=== PATIENT | female | born 1960 | race Caucasian/White ===

== ENCOUNTER → 2019-08-05 15:44 | Outpatient (CLI) | payer BC, SELFPAY ==
--- NOTE | ~2019-08-05 | MM_ITS ---
EXAMINATION: MM screening hans BI w shahzad HISTORY: Screening mammogram TECHNIQUE: Craniocaudal and mediolateral oblique 3-D tomosynthesis images were obtained and synthetic 2-D images were generated. CAD analysis was submitted and interpreted. COMPARISON: Comparison to multiple prior studies sequentially, with oldest reviewed study dated 04/11. BREAST PARENCHYMAL COMPOSITION: The breasts are heterogeneously dense, which may obscure small masses . FINDINGS: There is no evidence of suspicious mass, calcification, or architectural distortion to sugg est malignancy in either breast. There has been no suspicious interval change. IMPRESSION: 1. No mammographic evidence of malignancy. 2. Recommend routine screening mammography in one year. BI-RADS Category 1: Negative Reviewed, dictated and finalized at location A. P [employer]
== END ==
PROVIDERS: PCP Internal Medicine; Visit Provider Obstetrics & Gynecology
DX: Z12.31 Encounter for screening mammogram for malignant neoplasm of breast (principal)
CPT/HCPCS: 77063; 77067

== ENCOUNTER → 2019-08-07 14:17 | Outpatient (CLI) | payer BC, SELFPAY ==
--- NOTE | ~2019-08-07 | DEXA_ITS ---
Bone Density Report Name: Miladis Vaughan Age: 59 Sex: Female Ethnicity: White Date of : 1960 Indication: osteopenia; parental hip fracture; height loss; postmenopausal Referring Provider: ZUHAIR PYLE Study: Bone densitometry was performed. Exam Date: August 07, 2019 Accession number: [id number] Bone Density: Region BMD T-score Z-score Classification AP Spine (L1-L4) 0.891 -1.4 -0.1 Osteopenia Femoral Neck (Left) 0.656 -1.7 -0.5 Osteopenia Total Hip (Left) 0.777 -1.3 -0.5 Osteopenia Femoral Neck (Right) 0.676 -1.6 -0.3 Osteopenia Total Hip (Right) 0.805 -1.1 -0.3 Osteopenia Total Hip Mean 0.791 -1.2 -0.4 Osteopenia World Health Organization criteria for BMD impression classify patients as: Normal (T-score at or above -1.0), Osteopenia (T-score between -1.0 and -2.5), or Osteoporosis (T-score at or below -2.5). 10-year Fracture Risk(1): Major Osteoporotic Fracture 16% Hip Fracture 0.8% Reported Risk Factors: [place] (), Neck BMD=0.656, BMI=24.4, parental fracture (1) FRAX(R) Version 3.08. Fracture probability calculated for an untreated patient. Fracture probability may be lower if the patient has received treatment. Previous Exams: Region Exam Age BMD T-score BMD Change BMD Change Date g/cm2 vs Baseline vs Previous AP Spine(L1-L4) 08/07/2019 59 0.891 -1.4 0.017 -0.001 05/22/2017 57 0.892 -1.4 0.017 0.017 05/06/2015 55 0.874 -1.6 Total Hip(Left) 08/07/2019 59 0.777 -1.3 -0.023 -0.028* 05/22/2017 57 0.805 -1.1 0.005 0.005 05/06/2015 55 0.801 -1.2 Total Hip(Right) 08/07/2019 59 0.805 -1.1 0.001 -0.010 05/22/2017 57 0.815 -1.0 0.011 0.011 05/06/2015 55 0.804 -1.1 *Denotes significance at 95% confidence level, LSC for AP Spine = 0.022 g/cm2, LSC for Total Hip = 0.027 g/cm2 Clinical Information Provided by Patient: Parent has had a hip fracture Has used the following medications: Vitamin D, Calcium Patient maximum height was 67.75 Menopause Age: 51 Onset of menses at age 15 Number of children 2 Impression: The patient has low bone mass, based on the Left Femoral Neck T-score. The patient has an estimated ten-year risk of hip fracture of 0.8% and an estimated ten-year risk of major fracture of 16%, based on the WHO FRAX algorithm. The patient has risk factors, including
== END ==
PROVIDERS: PCP Internal Medicine; Visit Provider Obstetrics & Gynecology
DX: Z13.820 Encounter for screening for osteoporosis (principal); M85.88 Other specified disorders of bone density and structure, other site; M85.852 Other specified disorders of bone density and structure, left thigh; M85.851 Other specified disorders of bone density and structure, right thigh
CPT/HCPCS: 77080

== ENCOUNTER → 2020-09-09 16:17 | Outpatient (CLI) | payer BC, SELFPAY ==
--- NOTE | ~2020-09-09 | MM_ITS ---
EXAMINATION: MM screening hans BI w shahzad HISTORY: Screening mammogram TECHNIQUE: Craniocaudal and mediolateral oblique 3-D tomosynthesis images were obtained and synthetic 2-D images were generated. CAD analysis was submitted and interpreted. COMPARISON: 08/05/2019 bilateral digital screening mammogram 07/08/2018 diagnostic right digital mammogram and limited right breast ultrasound 06/25/2018, 05/21/2017 bilateral digital screening mammogram BREAST PARENCHYMAL COMPOSITION: The breasts are heterogeneously dense, which may obscure small masses . FINDINGS: There is a biopsy marker on the right; history of benign right breast biopsy. Suggestion of a 7 mm mass in the outer mid to lower left breast on MLO Tomosynthesis image . Mirta gnostic left mammogram and left breast ultrasound examination are recommended. Occasional subtle punctate benign-appearing microcalcifications are noted. Otherwise there is no evidence of suspicious mass, calcification, or architectural distortion to sugg est malignancy in either breast. There has been no other suspicious interval change. IMPRESSION: 1. Possible 7 mm mass in the posterior mid to lower outer left breast 2. Diagnostic left mammogram and left breast ultrasound examination are recommended. BI-RADS Category 0: Incomplete: Needs additional imaging evaluation. Reviewed, dictated and finalized at location A. IMPRESSION: 1. Possible 7 mm mass in the posterior mid to lower outer left breast 2. Diagnostic left mammogram and left breast ultrasound examination are recomme nded. BI-RADS Category 0: Incomplete: Needs additional imaging evaluation.
== END ==
PROVIDERS: Visit Provider Obstetrics & Gynecology
DX: Z12.31 Encounter for screening mammogram for malignant neoplasm of breast (principal); R92.8 Other abnormal and inconclusive findings on diagnostic imaging of breast
CPT/HCPCS: 77063; 77067

== ENCOUNTER → 2020-09-29 07:31 | Outpatient (CLI) | payer BC, SELFPAY ==
--- NOTE | ~2020-09-29 | MMUS_ITS ---
EXAMINATION: MM diagnostic mammo unilat LT, US breast LT limited HISTORY: Possible left breast mass on screening mammogram TECHNIQUE: Additional 3-D tomosynthesis images of the left breast were performed and synthetic 2-D im ages were generated. CAD analysis was submitted and interpreted. High resolution limited left breast ultrasound was performed. COMPARISON: 09/09/2020, 08/05/2019, 06/25/2018, 05/21/2017 FINDINGS: MAMMOGRAPHIC FINDINGS: There is an approximately 8 mm oval, obscured, low density mass in the posterior third of the lower b reast at the 6:00 location 4 cm from the nipple. No suspicious calcification or architectural distort ion are identified. ULTRASOUND: There is a 6 mm x 3 mm oval, parallel, hypoechoic mass with angular margins, no posterior features, a nd no internal vascularity at the 5:00 location 3 cm from the nipple. IMPRESSION: 1. Indeterminate left breast mass. 2. Ultrasound guided biopsy is recommended. BI-RADS category 4, suspicious findings. Reviewed, dictated and finalized at location A. IMPRESSION: 1. Indeterminate left breast mass. 2. Ultrasound guided biopsy is recommended. BI-RADS category 4, suspicious findings.
== END ==
PROVIDERS: Visit Provider Obstetrics & Gynecology
DX: R92.8 Other abnormal and inconclusive findings on diagnostic imaging of breast (principal)
CPT/HCPCS: 76642; 77065

== ENCOUNTER → 2022-04-16 13:18 | Outpatient (CLI) | payer OTHER, SELFPAY ==
--- NOTE | ~2022-04-16 | DEXA_ITS ---
Bone Density Report Name: DESHAUN AVILES Age: 62 Sex: Female Ethnicity: White Date of : 1960 Indication: osteopenia; parental hip fracture; height loss; postmenopausal Referring Provider: DINORAH NORTH Study: Bone densitometry was performed. Exam Date: April 16, 2022 Accession number: [id number] Bone Density: Region BMD T-score Z-score Classification AP Spine (L1-L4) 0.834 -1.9 -0.5 Osteopenia Femoral Neck (Left) 0.618 -2.1 -0.8 Osteopenia Total Hip (Left) 0.744 -1.6 -0.6 Osteopenia Femoral Neck (Right) 0.665 -1.7 -0.3 Osteopenia Total Hip (Right) 0.788 -1.3 -0.3 Osteopenia Total Hip Mean 0.766 -1.5 -0.5 Osteopenia World Health Organization criteria for BMD impression classify patients as: Normal (T-score at or above -1.0), Osteopenia (T-score between -1.0 and -2.5), or Osteoporosis (T-score at or below -2.5). 10-year Fracture Risk(1): Major Osteoporotic Fracture 18% Hip Fracture 1.4% Reported Risk Factors: [place] (), Neck BMD=0.618, BMI=22.2, parental fracture (1) FRAX(R) Version 3.08. Fracture probability calculated for an untreated patient. Fracture probability may be lower if the patient has received treatment. Previous Exams: Region Exam Age BMD T-score BMD Change BMD Change Date g/cm2 vs Baseline vs Previous AP Spine(L1-L4) 04/16/2022 62 0.834 -1.9 -0.040* -0.057* 08/07/2019 59 0.891 -1.4 0.017 -0.001 05/22/2017 57 0.892 -1.4 0.017 0.017 05/06/2015 55 0.874 -1.6 Total Hip(Left) 04/16/2022 62 0.744 -1.6 -0.056* -0.033* 08/07/2019 59 0.777 -1.3 -0.023 -0.028* 05/22/2017 57 0.805 -1.1 0.005 0.005 05/06/2015 55 0.801 -1.2 Total Hip(Right) 04/16/2022 62 0.788 -1.3 -0.017 -0.017 08/07/2019 59 0.805 -1.1 0.001 -0.010 05/22/2017 57 0.815 -1.0 0.011 0.011 05/06/2015 55 0.804 -1.1 *Denotes significance at 95% confidence level, LSC for AP Spine = 0.022 g/cm2, LSC for Total Hip = 0.027 g/cm2 Clinical Information Provided by Patient: Parent has had a hip fracture Has used the following medications: Vitamin D, Calcium, MTV Patient maximum height was 67.75 Menopause Age: 51 Onset of menses at age 15 Number of children 2 Impression: The patient has low bone mass, based on the Left Femoral Neck
== END ==
PROVIDERS: PCP Internal Medicine; Visit Provider Obstetrics & Gynecology Gynecology
DX: M85.88 Other specified disorders of bone density and structure, other site (principal); M85.852 Other specified disorders of bone density and structure, left thigh; M85.851 Other specified disorders of bone density and structure, right thigh
CPT/HCPCS: 77080

== ENCOUNTER 2022-05-17 01:02 | Day surgery (SDC) | payer OTHER, SELFPAY ==
[2022-05-09 14:55] VITALS: BMI 24.3
[2022-05-17 12:08] VITALS: BP 137/71; PULSE 98; RESP 18; TEMP 36.4; O2SAT 100
--- NOTE | 2022-05-17 12:17 | PM.HPGS ---
History of Present Illness History of Present Illness Consent: Risks, benefits, and alternatives have been discussed and questions answered. Patient agrees to proceed with procedure. Chief complaint: family history of colon cancer Narrative: Miladis Vaughan is a 62 year old female Presents for screening colonoscopy. Family history is significant the patient's mother had colon cancer. Patient reports that her current weight appetite bowel movements are normal. Patient denies abdominal pain. She has had no bleeding. She presents today for screening colonoscopy. Review of Systems Review of Systems: Review of systems noncontributory. [facility] Past Medical History Medical History (Updated 05/17/22 @ 12:18 by Manuelito Douglas MD) Basal cell carcinoma Hyperlipidemia Osteopenia Surgical History Surgical History S/P Mohs surgery for basal cell carcinoma Family History Family History Father Family history of malignant neoplasm, Onset Age: 78 Patient's father is Mother Carcinoma of colon Family history of malignant neoplasm of breast in first degree relative, Onset Age: 76 Patient's mother is Family history of cardiovascular disease Grandparent Family history of malignant neoplasm of breast, Onset Age: 70 Sibling Family history of malignant neoplasm, Onset Age: 55 Social History Social History Smoking status: Never smoker Second hand tobacco smoke exposure: No Alcohol intake: never Alcohol use details: 1-2 glasses of wine on holidays Substance use: never Substance use type: does not use Living arrangements: alone Spiritual care concerns: No Meds Home Medications and Allergies Home Medications Medication Instructions Recorded Confirmed Type ergocalciferol (vitamin D2) 1,250 1,250 mcg PO 2XW 02/19/20 05/09/22 History mcg (50,000 unit) capsule (Vitamin D2) calcium carbonate 600 mg calcium 600 mg PO BID 09/01/21 05/09/22 History (1,500 mg) tablet (Calcium) raloxifene 60 mg tablet 60 mg PO DAILY 05/09/22 05/09/22 History Allergies Allergy/AdvReac Type Severity Reaction Status Date / Time No Known Allergies Allergy Verified 05/17/22 12:06 Vital Signs Vital Signs - 24 hr 05/17/22 12:08 Temperature 97.6 F Pulse Rate 98 Respiratory Rate 18 Blood Pressure 137/71 Pulse Oximetry 100 Oxygen Delivery Room Air Exam Narrative: Physical exam reveals patient to be alert. Vital signs stable. HEENT exam is unremarkable. Patient is anicteric. Lungs are clear to auscultation and percussion. Heart is without murmur or extra sounds. Abdominal exam bowel sounds are present soft nontender with no hepatosplenomegaly. Digital external rectal exam is normal. Assessment and Plan Assessment and plan (1) Family history of colon cancer in mother: Code(s): Z80.0 - Family history of malignant neoplasm of digestive organs Status: Acute Assessment and Plan: Patient's mother had colon cancer. Plan for surveillance colonoscopy now and consider this at 5 year intervals in the future.
[2022-05-17] MEDS: LACTATED RINGERS 1,000 ML 150 ML IV CONT (12:24)
--- NOTE | 2022-05-17 12:50 | P.PNAN_ITS ---
Anes - Initial Pre Proc Eval Procedure: Operation Date: 05/17/22 13:30 Proposed Procedures p Screening Colonoscopy - Manuelito Douglas MD Date/Time: 05/17/22 12:50 Surgeon: Manuelito Douglas MD Pre Op Diagnosis: family history of colon cancer Patient Data Age: 62 Gender: F Height: 1.68 m Weight: 66.4 kg Last Vital Signs Temp 97.6 F 05/17/22 12:08 Pulse 98 05/17/22 12:08 Resp 18 05/17/22 12:08 BP 137/71 05/17/22 12:08 Pulse Ox 100 05/17/22 12:08 O2 Del Method Room Air 05/17/22 12:08 Allergies Allergy/AdvReac Type Severity Reaction Status Date / Time No Known Allergies Allergy Verified 05/17/22 12:06 Home Medications Medication Instructions Recorded Confirmed Type ergocalciferol (vitamin D2) 1,250 1,250 mcg PO 2XW 02/19/20 05/09/22 History mcg (50,000 unit) capsule (Vitamin D2) calcium carbonate 600 mg calcium 600 mg PO BID 09/01/21 05/09/22 History (1,500 mg) tablet (Calcium) raloxifene 60 mg tablet 60 mg PO DAILY 05/09/22 05/09/22 History Patient hx anesthesia problems: none Family hx anesthesia problems: none Results Review: All pre-operative results and documents have been reviewed as part of the pre- operative evaluation. [facility] Past Medical History Medical History (Updated 05/17/22 @ 12:18 by Manuelito Douglas MD) Basal cell carcinoma Hyperlipidemia Osteopenia Surgical History Surgical History S/P Mohs surgery for basal cell carcinoma Family History Family History Father Family history of malignant neoplasm, Onset Age: 78 Patient's father is Mother Carcinoma of colon Family history of malignant neoplasm of breast in first degree relative, Onset Age: 76 Patient's mother is Family history of cardiovascular disease Grandparent Family history of malignant neoplasm of breast, Onset Age: 70 Sibling Family history of malignant neoplasm, Onset Age: 55 Social History Social History Smoking status: Never smoker Second hand tobacco smoke exposure: No Alcohol intake: never Alcohol use details: 1-2 glasses of wine on holidays Substance use: never Substance use type: does not use Living arrangements: alone Spiritual care concerns: No Anes - Eval Final PreProcedure Day of Procedure 05/17/22 12:50 Patient weight: normal Heart: regular rate and rhythm Lungs: clear to auscultation Airway: Mallampati scale class II Neurological: alert and oriented Last oral intake: >/= 8 hours ASA classification: II Emergent: no Anesthetic plan: proceed Anesthesia type and monitoring: general GIVS and standard monitoring Results Review: All pre-operative results and documents have been reviewed as part of the pre- operative evaluation. Informed Consent: The patient's anesthetic plan and its attendant risks and benefits were discussed with the patient/family/POA. Questions were solicited and answers provided to the satisfaction of the patient/family/POA.
--- NOTE | 2022-05-17 12:54 | WPDANESEPPF ---
Anes - Initial Pre Proc Eval Procedure: Operation Date: 05/17/22 13:30 Proposed Procedures p Screening Colonoscopy - Manuelito Douglas MD Date/Time: 05/17/22 12:54 Surgeon: Manuelito Douglas MD Pre Op Diagnosis: family history of colon cancer Patient Data Age: 62 Gender: F Height: 1.68 m Weight: 66.4 kg Last Vital Signs Temp 97.6 F 05/17/22 12:08 Pulse 98 05/17/22 12:08 Resp 18 05/17/22 12:08 BP 137/71 05/17/22 12:08 Pulse Ox 100 05/17/22 12:08 O2 Del Method Room Air 05/17/22 12:08 Allergies Allergy/AdvReac Type Severity Reaction Status Date / Time No Known Allergies Allergy Verified 05/17/22 12:06 Home Medications Medication Instructions Recorded Confirmed Type ergocalciferol (vitamin D2) 1,250 1,250 mcg PO 2XW 02/19/20 05/09/22 History mcg (50,000 unit) capsule (Vitamin D2) calcium carbonate 600 mg calcium 600 mg PO BID 09/01/21 05/09/22 History (1,500 mg) tablet (Calcium) raloxifene 60 mg tablet 60 mg PO DAILY 05/09/22 05/09/22 History Patient hx anesthesia problems: none Family hx anesthesia problems: none Results Review: All pre-operative results and documents have been reviewed as part of the pre-operative evaluation. [facility] Past Medical History Medical History (Updated 05/17/22 @ 12:18 by Manuelito Douglas MD) Basal cell carcinoma Hyperlipidemia Osteopenia Surgical History Surgical History S/P Mohs surgery for basal cell carcinoma Family History Family History Father Family history of malignant neoplasm, Onset Age: 78 Patient's father is Mother Carcinoma of colon Family history of malignant neoplasm of breast in first degree relative, Onset Age: 76 Patient's mother is Family history of cardiovascular disease Grandparent Family history of malignant neoplasm of breast, Onset Age: 70 Sibling Family history of malignant neoplasm, Onset Age: 55 Social History Social History Smoking status: Never smoker Second hand tobacco smoke exposure: No Alcohol intake: never Alcohol use details: 1-2 glasses of wine on holidays Substance use: never Substance use type: does not use Living arrangements: alone Spiritual care concerns: No Anes - Eval Final PreProcedure Day of Procedure 05/17/22 12:54 Patient weight: normal Heart: regular rate and rhythm Lungs: clear to auscultation Airway: Mallampati scale class II Neurological: alert and oriented Last oral intake: >/= 8 hours ASA classification: II Emergent: no Anesthetic plan: proceed Anesthesia type and monitoring: general GIVS and standard monitoring Results Review: All pre-operative results and documents have been reviewed as part of the pre-operative evaluation. Informed Consent: The patient's anesthetic plan and its attendant risks and benefits were discussed with the patient/family/POA. Questions were solicited and answers provided to the satisfaction of the patient/family/POA.
[2022-05-17 14:04] VITALS: BP 102/58; PULSE 84; RESP 29; O2SAT 98
[2022-05-17 14:14] VITALS: BP 104/62; PULSE 70; RESP 20; O2SAT 99
[2022-05-17 14:24] VITALS: BP 128/71; PULSE 66; RESP 24; O2SAT 100
== END 2022-05-17 14:34 | disposition home or self-care (01) ==
PROVIDERS: PCP Internal Medicine; Visit Provider Internal Medicine Gastroenterology
PROC: 0DJD8ZZ Inspection of Lower Intestinal Tract, Via Natural or Artificial Opening Endoscopic (ICD-10-PCS; CPT 45378; principal; 2022-05-17 13:30)
DX: Z12.11 Encounter for screening for malignant neoplasm of colon (principal); K63.5 Polyp of colon; E78.5 Hyperlipidemia, unspecified; K57.30 Diverticulosis of large intestine without perforation or abscess without bleeding; K64.8 Other hemorrhoids; M85.80 Other specified disorders of bone density and structure, unspecified site; Z80.0 Family history of malignant neoplasm of digestive organs
CPT/HCPCS: 45385; 88305; J2704; J7120

== ENCOUNTER 2023-05-16 13:48 | Outpatient (CLI) | payer OTHER, SELFPAY ==
[2023-05-16 14:11] LABS: Basophils Absolute Auto 0.1 K/mm3 (0.0-0.1); Basophils Percent Auto 0.6 % (0.2-1.2); Eosinophils Absolute Auto 0.2 K/mm3 (0-0.3); Eosinophils Percent Auto 2.6 % (0-4.4); Hematocrit 42.5 % (37.0-47.0); Hemoglobin 13.9 g/dL (12.0-15.0); Immature Granulocyte Absolute 0.02 K/mm3 (0.00-0.031); Immature Granulocyte Percent A 0.3 % (0-0.5); Lymphocytes Absolute Auto 2.15 K/mm3 (0.9-3.2); Lymphocytes Percent Auto 26.9 % (18.3-44.2); Mean Corpuscular HGB Conc 32.7 g/dl (32-36); Mean Corpuscular Hemoglobin 30.6 pg (26-34); Mean Corpuscular Volume 93.6 fl (80-100); Mean Platelet Volume 10.2 fl (7.4-10.4); Monocytes Absolute Auto 0.7 K/mm3 (0.1-0.6); Monocytes Percent Auto 8.1 % (2.6-8.5); Neutrophils Absolute Auto 4.9 K/mm3 (1.3-6.7); Neutrophils Percent Auto 61.5 % (45.5-73.1); Platelet Count Result 161 k/mm3 (150-375); Red Blood Count 4.54 M/mm3 (4.2-5.4); Red Cell Distribution Width 11.6 % (11.5-14.5)
[2023-05-16 17:06] LABS: Alanine Aminotransferase 16 U/L (6-35); Albumin Level 3.9 g/dL (3.5-5.1); Alkaline Phosphatase 74 U/L (38-126); Anion Gap 6 mmol/L (8-16); Aspartate Amino Transferase 27 U/L (14-36); Bilirubin,Total 0.6 mg/dL (0.2-1.3); Blood Urea Nitrogen 15 mg/dL (7-17); Calcium 9.3 mg/dL (8.4-10.2); Carbon Dioxide 29 mmol/L (22-30); Chloride 104 mmol/L (98-107); Estimated Glomerular Filt Rate > 60; Glucose 97 mg/dL (65-110); Potassium 3.9 mmol/L (3.4-5.0); Sodium 139 mmol/L (137-145)
[2023-05-16 17:23] LABS: Iron 57 ug/dL (37-170); Percent Iron Saturation 22 % (20-50)
[2023-05-16 18:12] LABS: Folic Acid 11.3 ng/mL (2.76->20)
[2023-05-19 12:15] LABS: Methylmalonic Acid 618 nmol/L (87-318)
[2023-05-21 10:46] LABS: Soluble Transferrin Receptor 1.08 mg/L (0.76-1.76)
[2023-05-22 13:57] LABS: Platelet Antibody, Direct NEGATIVE (NEGATIVE)
== END 2023-05-16 13:49 | disposition home or self-care (01) ==
LOC: ANHLAB 13:50
PROVIDERS: PCP Internal Medicine; Visit Provider Internal Medicine Hematology & Oncology
DX: D64.9 Anemia, unspecified (principal); D69.59 Other secondary thrombocytopenia
CPT/HCPCS: 36415; 80053; 82607; 82728; 82746; 83540; 83550; 83921; 84238; 85025; 86023

== ENCOUNTER 2023-05-30 10:31 | Outpatient (CLI) | payer OTHER, SELFPAY ==
--- NOTE | ~2023-05-30 | US_ITS ---
Abdominal Sonogram: Real-time sonographic imaging of the abdomen was performed. Clinical History: Secondary thrombocytopenia Findings: The liver appears normal with no evidence of mass lesion or bile duct dilatation. Main por tarun vein demonstrates normal direction of flow. The spleen is normal in size without evidence of foca l lesion. The gallbladder is well distended, and demonstrate 3 mm gallbladder wall polyp. No stones or other wall thickening seen. The common bile duct measures 3 mm. The visualized pancreas, aorta, a nd IVC are unremarkable. The right kidney measures 9.3 cm in length and the left kidney measures 9.5 cm. There is no hydronephrosis. Suspected nonobstructing right renal stones present measuring up to 7 mm. Impression: 3 mm gallbladder wall polyp. Suspected nonobstructing right renal stones measuring up to 7 mm. Reviewed, dictated and finalized at [facility]. [employer] Impression: 3 mm gallbladder wall polyp. Suspected nonobstructing right renal stones measuring up to 7 mm.
== END 2023-05-30 10:32 | disposition home or self-care (01) ==
PROVIDERS: PCP Internal Medicine; Visit Provider Internal Medicine Hematology & Oncology
DX: D69.59 Other secondary thrombocytopenia (principal); K82.4 Cholesterolosis of gallbladder
CPT/HCPCS: 76700

== ENCOUNTER 2023-09-09 10:27 | Outpatient (CLI) | payer OTHER, SELFPAY ==
[2023-09-09 10:41] LABS: Basophils Absolute Auto 0.1 K/mm3 (0.0-0.1); Basophils Percent Auto 0.7 % (0.2-1.2); Eosinophils Absolute Auto 0.2 K/mm3 (0-0.3); Eosinophils Percent Auto 2.4 % (0-4.4); Hematocrit 41.3 % (37.0-47.0); Hemoglobin 13.4 g/dL (12.0-15.0); Immature Granulocyte Absolute 0.02 K/mm3 (0.00-0.031); Immature Granulocyte Percent A 0.2 % (0-0.5); Lymphocytes Absolute Auto 2.63 K/mm3 (0.9-3.2); Lymphocytes Percent Auto 30.5 % (18.3-44.2); Mean Corpuscular HGB Conc 32.4 g/dl (32-36); Mean Corpuscular Hemoglobin 30.2 pg (26-34); Mean Corpuscular Volume 93.2 fl (80-100); Mean Platelet Volume 9.5 fl (7.4-10.4); Monocytes Absolute Auto 0.7 K/mm3 (0.1-0.6); Monocytes Percent Auto 7.5 % (2.6-8.5); Neutrophils Absolute Auto 5.1 K/mm3 (1.3-6.7); Neutrophils Percent Auto 58.7 % (45.5-73.1); Platelet Count Result 186 k/mm3 (150-375); Red Blood Count 4.43 M/mm3 (4.2-5.4); Red Cell Distribution Width 12.7 % (11.5-14.5); White Blood Count 8.6 K/mm3 (4.5-10.0)
[2023-09-09 13:42] LABS: Folic Acid > 20.0 ng/mL (2.76->20)
== END 2023-09-09 10:28 | disposition home or self-care (01) ==
PROVIDERS: PCP Internal Medicine; Visit Provider Internal Medicine Hematology & Oncology
DX: D64.9 Anemia, unspecified (principal)
CPT/HCPCS: 36415; 82607; 82746; 85025

== ENCOUNTER 2024-03-03 11:18 | Outpatient (CLI) | payer OTHER, SELFPAY ==
[2024-03-03 12:28] LABS: Anion Gap 4 mmol/L (4-12); Blood Urea Nitrogen 11 mg/dL (7-17); Calcium 9.2 mg/dL (8.4-10.2); Carbon Dioxide 32 mmol/L (22-30); Chloride 96 mmol/L (98-107); Estimated Glomerular Filt Rate > 60; Glucose 92 mg/dL (65-110); Potassium 3.8 mmol/L (3.4-5.0); Sodium 132 mmol/L (137-145)
[2024-03-03 12:57] LABS: Basophils Absolute Auto 0.1 K/mm3 (0.0-0.1); Basophils Percent Auto 0.9 % (0.2-1.2); Eosinophils Absolute Auto 0.2 K/mm3 (0-0.3); Eosinophils Percent Auto 2.9 % (0-4.4); Hematocrit 43.7 % (37.0-47.0); Immature Granulocyte Absolute 0.02 K/mm3 (0.00-0.031); Immature Granulocyte Percent A 0.3 % (0-0.5); Lymphocytes Absolute Auto 2.23 K/mm3 (0.9-3.2); Lymphocytes Percent Auto 29.5 % (18.3-44.2); Mean Corpuscular Hemoglobin 30.3 pg (26-34); Mean Corpuscular Volume 94.6 fl (80-100); Mean Platelet Volume 10.9 fl (7.4-10.4); Monocytes Absolute Auto 0.6 K/mm3 (0.1-0.6); Monocytes Percent Auto 7.5 % (2.6-8.5); Neutrophils Absolute Auto 4.5 K/mm3 (1.3-6.7); Neutrophils Percent Auto 58.9 % (45.5-73.1); Platelet Count Result 173 k/mm3 (150-375); Red Blood Count 4.62 M/mm3 (4.2-5.4); Red Cell Distribution Width 12.1 % (11.5-14.5); White Blood Count 7.6 K/mm3 (4.5-10.0)
[2024-03-03 13:40] LABS: Folic Acid > 20.0 ng/mL (2.76->20); Vitamin B12 > 1000.0 pg/mL (239-931)
== END 2024-03-03 11:19 | disposition home or self-care (01) ==
LOC: ANHLAB 11:20
PROVIDERS: PCP Internal Medicine; Visit Provider Internal Medicine Hematology & Oncology
DX: D64.9 Anemia, unspecified (principal)
CPT/HCPCS: 36415; 80048; 82607; 82746; 85025

== ENCOUNTER 2024-04-21 09:17 | Outpatient (CLI) | payer OTHER, SELFPAY ==
--- NOTE | ~2024-04-21 | DEXA_ITS ---
Bone Density Report Name: DESHAUN AVILES Age: 64 Sex: Female Ethnicity: White Date of : 1960 Indication: postmenopausal; screening for osteoporosis; parental hip fracture; height loss; Referring Provider: DINORAH NORTH Study: Bone densitometry was performed. Exam Date: April 21, 2024 Accession number: [id number] Bone Density: Region BMD T-score Z-score Classification AP Spine(L1-L4) 0.858 -1.7 -0.1 Osteopenia Femoral Neck (Left) 0.670 -1.6 -0.2 Osteopenia Total Hip (Left) 0.888 -0.4 0.7 Normal Femoral Neck (Right) 0.647 -1.8 -0.4 Osteopenia Total Hip (Right) 0.823 -1.0 0.1 Normal Total Hip Mean 0.856 -0.7 0.4 Normal World Health Organization criteria for BMD impression classify patients as: Normal (T-score at or above -1.0), Osteopenia (T-score between -1.0 and -2.5), or Osteoporosis (T-score at or below -2.5). 10-year Fracture Risk(1): Major Osteoporotic Fracture 18% Hip Fracture 1.2% Reported Risk Factors: [place] (), Neck BMD=0.647, BMI=23.8, parental fracture (1) FRAX(R) Version 3.08. Fracture probability calculated for an untreated patient. Fracture probability may be lower if the patient has received treatment. Clinical Information Provided by Patient: Parent has had a hip fracture Has used the following medications: Evista (i.e. raloxifene), Vitamin D, Calcium Patient maximum height was 68 No regular weight bearing exercise Onset of menses at age 14 Number of children 2 Impression: The patient has low bone mass, based on the Right Femoral Neck T-score. The patient has an estimated ten-year risk of hip fracture of 1.2% and an estimated ten-year risk of major fracture of 18%, based on the WHO FRAX algorithm. The patient has risk factors, including: parental hip fracture. Discussion: BONE DENSITY IS LOW AT ONE OR MORE SKELETAL SITES. This patient's lowest T-score is low at one or more skeletal sites. It meets the World Health Organization's (WHO) criteria for ?low bone mass? (T-score between -1.0 and -2.5). The patient's 10-year risk of fracture as calculated by FRAX is less than the threshold where pharmacological therapy is recommended by the National Osteoporosis Foundation (NOF). However, all treatment decisions require clinical judgment and consideration of individual patient factors, including patient preferences, comorbidities, previous drug use, risk factors not captured in the FRAX model (e.g., frailty, falls, vitamin D deficiency, increased bone turnover, interval significant decline in bone density) and possible under or overestimation of fracture risk by FRAX. The patient should follow a healthful lifestyle (good nutrition with adequate calcium and vitamin D, and appropriate weight-bearing exercise). Follow-Up: Consider repeating this study in 2 to 3 years to reassess this patient's status, or sooner if there is some new clinical indication. Reported by: DEMARIO on 04/22/2024 11:44:00 AM. Reviewed, dictated and finalized at location [place]
== END 2024-04-21 09:18 | disposition home or self-care (01) ==
LOC: ANHIMG 09:18
PROVIDERS: PCP Internal Medicine; Visit Provider Obstetrics & Gynecology Gynecology
DX: M85.89 Other specified disorders of bone density and structure, multiple sites (principal); Z78.0 Asymptomatic menopausal state
CPT/HCPCS: 77080